=== PATIENT | male | born 1935 | race Caucasian/White ===

== ENCOUNTER 2016-06-15 02:56 | Emergency (ER) | payer MEDICARE ==
[2016-06-15 03:17] LABS: #Basophils 0.1 thou/uL (0.0-0.2); #Eosinphils 0.1 thou/uL (0.0-0.7); #Lymphocytes 1.8 thou/uL (1.20-3.40); #Monocytes 0.3 thou/uL (0.11-0.59); #Neutrophils 9.5 thou/uL (1.40-6.50); %Basophils 0.6 % (0.0-1.0); %Eosinophils 0.7 % (0.0-10.0); %Lymphocytes 15.7 % (21.0-51.0); %Monocytes 2.1 % (0.0-10.0); %Neutrophils 80.8 % (42.0-75.0); Hemoglobin 16.1 g/dL (14.0-18.0); Mean Corpuscular HGB CONC 34.7 g/dL (32.0-36.0); Mean Corpuscular Hemoglobin 30.8 pg (27.0-31.0); Mean Corpuscular Volume 88.7 fl (80.0-94.0); Mean Platelet Volume 6.7 fL (7.4-10.4); Platelet Count 299 thou/uL (130-400); RBC Distribution Width 11.6 % (11.5-14.5); Red Blood Cell (RBC) Count 5.23 mill/uL (4.70-6.10); White Blood Cell (WBC) Count 11.7 thou/uL (4.8-10.8)
[2016-06-15] MEDS ORDERED: cefTRIAXone\\ROCEPHIN 1 GM VIAL ONE (03:26)
[2016-06-15] MEDS ORDERED: Acetaminophen 325 MG TAB ONE (03:26)
[2016-06-15] MEDS ORDERED: methylPREDNISolone Sod Succ/PF 125 MG/2 ML VIAL ONE (03:26)
[2016-06-15 03:31] LABS: Digoxin Less than 0.15 ng/mL (0.8-2.0)
[2016-06-15 03:34] LABS: ALT (SGPT) 16 U/L (0-55); AST (SGOT) 19 U/L (5-34); Alkaline Phosphatase 97 U/L (40-150); Anion Gap 18 mmol/L (10-20); BUN (Urea Nitrogen) 23 mg/dL (8.4-25.7); Bilirubin, Total 0.7 mg/dL (0.2-1.2); Calc. Creatinine Clearance 0 mL/min (70-130); Calcium 9.2 mg/dL (7.8-10.44); Carbon Dioxide 24 mmol/L (23-31); Chloride 103 mmol/L (98-107); Estimated GFR-MDRD 57; Glucose 118 mg/dL (83-110); Potassium 3.9 mmol/L (3.5-5.1); Sodium 141 mmol/L (136-145)
[2016-06-15 03:35] LABS: CKMB 1.3 ng/mL (0-6.6); Troponin I 0.013 ng/mL (< 0.028)
[2016-06-15 05:46] LABS: Base Excess 1.6 mEq/L (-2 - +2)
[2016-06-15 05:47] LABS: Hemoglobin (Hb) 12.7 g/dL (12.6-17.4)
[2016-06-15] MEDS ORDERED: Sodium Chloride 0.9% 1,000 ML BAG ONE (06:39)
[2016-06-15] MEDS ORDERED: Sodium Chloride 0.9% 100 ML BAG ONE (06:39)
--- NOTE | 2016-06-15 08:00 | RAD ---
PORTABLE CHEST: HISTORY: Shortness of breath. COMPARISON: None. FINDINGS: Heart size is borderline. The patient is rotated. There is a parenchymal infiltrate in the right m id and lower lung zones. There are no signs of failure. IMPRESSION: Infiltrative-appearing changes in the right mid lung field and right lower lobe. POS: [facility]
== END 2016-06-15 05:53 | disposition short-term general hospital (02) ==
LOC: MADERS 02:56
DX: J18.1 Lobar pneumonia, unspecified organism (principal); I10 Essential (primary) hypertension; J44.9 Chronic obstructive pulmonary disease, unspecified; Z87.891 Personal history of nicotine dependence
CPT/HCPCS: 71010; 80053; 80162; 82553; 82805; 83880; 84484; 85025; 85379; 87040; 93005; 94640; 94760; 96361; 96365; 96367; 96375; J0696; J1956; J2930; J7050; J7620